=== PATIENT | male | born 1980 | race Caucasian/White ===

== ENCOUNTER 2017-12-05 16:49 | Emergency (ER) | payer MEDICARE ==
[~2017-12-05] VITALS: Ht 188 cm; Wt 113.4 kg
[~2017-12-05 16:49] MED LIST: DEPAKOTE 250MG250 M1; DEPAKOTE ER500 MG; KEFLEX500 MG PO; LAMICTAL100 MG; LEVOTHYROXIN0.075 MG; OLANZAPINE20 MG
[2017-12-05] MEDS ORDERED: OLANZAPINE5 M1 PO (17:15)
[2017-12-05] MEDS ORDERED: LAMICTAL (GREE1 EACH PO (17:16)
[2017-12-05] MEDS ORDERED: KEPPRA 500 MG500 M2 PO (17:16)
[2017-12-05] MEDS ORDERED: LEVOXYL75 MCG PO (17:16)
[2017-12-05] MEDS ORDERED: KEFLEX500 M1 PO (17:20)
[2017-12-05 17:29] VITALS: BP 148/93
== END 2017-12-05 17:31 | disposition home or self-care (01) ==
LOC: M.ERS 16:49
DX: S01.01XA Laceration without foreign body of scalp, initial encounter (principal); F17.210 Nicotine dependence, cigarettes, uncomplicated; W22.8XXA Striking against or struck by other objects, initial encounter; Y93.89 Activity, other specified; Y92.89 Other specified places as the place of occurrence of the external cause; Y99.8 Other external cause status

== ENCOUNTER 2018-03-31 10:56 | Emergency (ER) | payer MEDICARE, MEDICAID ==
[~2018-03-31] VITALS: Ht 188 cm; Wt 117.9 kg
[~2018-03-31 10:56] MED LIST changes: +KEFLEX500 M1 PO; +KEPPRA 500 MG500 M2 PO; +LAMICTAL (GREE1 EACH PO; +LEVOXYL75 MCG PO; +OLANZAPINE5 M1 PO
[2018-03-31] MEDS ORDERED: MEDROLDOSEPACK PO (12:36)
[2018-03-31] MEDS ORDERED: ROBAXIN 750 MG750 M1 PO (12:36)
[2018-03-31] MEDS ORDERED: IBUPROFEN 800800 M1 PO (12:36)
[2018-03-31 12:48] VITALS: BP 138/88
== END 2018-03-31 12:49 | disposition home or self-care (01) ==
LOC: M.ERS 10:56
DX: M54.16 Radiculopathy, lumbar region (principal); M46.1 Sacroiliitis, not elsewhere classified; M51.9 Unspecified thoracic, thoracolumbar and lumbosacral intervertebral disc disorder; G40.909 Epilepsy, unspecified, not intractable, without status epilepticus; F17.210 Nicotine dependence, cigarettes, uncomplicated

== ENCOUNTER 2019-11-19 21:34 | Emergency (ER) | payer MEDICARE, MEDICAID ==
[~2019-11-19] VITALS: Ht 188 cm; Wt 117.9 kg
[~2019-11-19 21:34] MED LIST changes: +IBUPROFEN 800800 M1 PO; +MEDROLDOSEPACK PO; +ROBAXIN 750 MG750 M1 PO
[2019-11-19 22:17] LABS: ABSOLUTE BASOPHILS 0.1 thou/uL (0.0-0.2); ABSOLUTE EOSINOPHILS 0.2 thou/uL (0.0-0.7); ABSOLUTE LYMPHOCYTES 3.1 thou/uL (0.8-5.3); ABSOLUTE MONOCYTES 0.7 thou/uL (0.0-1.2); ABSOLUTE NEUTROPHILS 6.3 thou/uL (1.6-8.1); BASOPHILS 1.2 %; EOSINOPHILS 1.5 %; HEMATOCRIT 45.6 % (42.0-52.0); HEMOGLOBIN 15.9 gm/dL (14.0-18.0); LYMPHOCYTES 29.8 %; MCH 32.6 pg (26.0-34.0); MCHC 34.9 g/dL (28.0-37.0); MCV 93.4 fL (80.0-100.0); MONOCYTES 6.4 %; MPV 8.9 fl. (7.2-11.1); NUCLEATED RBCS 0 /100WBC; PLATELET COUNT* 180 thou/uL (150-400); POLYS 61.1 %; RBC 4.88 mil/uL (4.50-6.00); RDW-CV 13.6 % (10.5-14.5); WBC 10.3 thou/uL (4.0-11.0)
[2019-11-19 22:23] LABS: CALCIUM 8.3 mg/dL (8.5-10.1); CREATININE 1.1 mg/dL (0.6-1.3); POTASSIUM 3.7 mmol/L (3.5-5.1)
[2019-11-19] MEDS ORDERED: PRAVACHOL 20 MG20 M1 PO (22:25)
[2019-11-19] MEDS ORDERED: MIRAPEX0.5 MG PO (22:27)
[2019-11-19 22:28] LABS: ALBUMIN 3.4 g/dL (3.4-5.0); TOTAL BILIRUBIN 0.2 mg/dL (<0.1-1.0); TOTAL PROTEIN 7.6 g/dL (6.4-8.2)
[2019-11-19 22:43] LABS: ALCOHOL < 10 mg/dL (<10); VALPROIC ACID (DEPAKENE) 40.5 mcg/mL (50-100)
[2019-11-19 22:44] LABS: URINE BILIRUBIN NEGATIVE (Negative); URINE BLOOD TRACE (Negative); URINE CLARITY CLEAR; URINE COLOR YELLOW; URINE GLUCOSE-RANDOM NEGATIVE (Negative); URINE KETONES NEGATIVE (Negative); URINE LEUKOCYTES-REFLEX NEGATIVE (Negative); URINE NITRITE-REFLEX NEGATIVE (Negative); URINE PROTEIN 1+ (Negative); URINE SPECIFIC GRAVITY >= 1.030 (1.005-1.030); URINE UROBILINOGEN 0.2 E.U./dl (0.2-1.0)
[2019-11-19 22:53] LABS: AMP/METHAMP Negative (Negative); BARBITURATES Negative (Negative); BENZODIAZEPINES Negative (Negative); COCAINE Negative (Negative); METHADONE Negative (Negative); OPIATES Negative (Negative); PCP Negative (Negative); THC POSITIVE (Negative)
[2019-11-19 23:20] VITALS: BP 120/64
--- NOTE | 2019-11-20 12:50 | EKG ---
[place] [address] ELECTROCARDIOGRAM REPORT Name: RON CODY Room: [facility]#: [id number] Admission: 11/19/19 Attend Phys: Discharge: 11/19/19 Date of : 76 Date of Service: 11/19/192136 Report #: [id number] THIS REPORT FOR: //name// [facility] ED Test Date: 2019-11-19 Test Time: 21:37:57 Pat Name: RON CODY Department: Room: Gender: Ic Design Manager: [place] : 1980 Requested By: Gale Rosa Order Number: [id number] Valentin MD: Grady Waddell Measurements Intervals [place] Rate: 90 P: 1 AR: 157 QRS: -2 QRSD: 85 T: 48 QT: 347 QTc: 425 Interpretive Statements Sinus rhythm Minimal ST depression, lateral leads Compared to ECG 05/21/2008 14:30:45 ST (T wave) deviation now present Electronically Signed On 11-20-2019 12:48:59 CDT by Grady Waddell [email or web address] <ELECTRONICALLY SIGNED> By: Grady Waddell MD, [facility] 11/20/19 1248 [id number] Grady Waddell MD, [facility] /EPI
== END 2019-11-19 23:22 | disposition home or self-care (01) ==
LOC: M.ERS 21:34
PROVIDERS: Personal Emergency Response Attendant
DX: R56.9 Unspecified convulsions (principal); Z79.899 Other long term (current) drug therapy

== ENCOUNTER 2020-05-12 19:10 | Emergency (ER) | payer MEDICARE, MEDICAID ==
[~2020-05-12] VITALS: Ht 188 cm; Wt 88.5 kg
[~2020-05-12 19:10] MED LIST changes: +DEPAKOTE ER250 MG PO; -DEPAKOTE ER500 MG; +MIRAPEX0.5 MG PO; +PRAVACHOL 20 MG20 M1 PO
[2020-05-12 19:46] LABS: ABSOLUTE BASOPHILS 0.1 thou/uL (0.0-0.2); ABSOLUTE EOSINOPHILS 0.2 thou/uL (0.0-0.7); ABSOLUTE LYMPHOCYTES 3.6 thou/uL (0.8-5.3); ABSOLUTE MONOCYTES 0.8 thou/uL (0.0-1.2); ABSOLUTE NEUTROPHILS 4.6 thou/uL (1.6-8.1); BASOPHILS 1.1 %; EOSINOPHILS 1.9 %; HEMATOCRIT 47.4 % (42.0-52.0); HEMOGLOBIN 16.7 gm/dL (14.0-18.0); LYMPHOCYTES 39.4 %; MCH 31.9 pg (26.0-34.0); MCHC 35.2 g/dL (28.0-37.0); MCV 90.7 fL (80.0-100.0); MONOCYTES 8.2 %; MPV 9.5 fl. (7.2-11.1); NUCLEATED RBCS 0 /100WBC; PLATELET COUNT* 169 thou/uL (150-400); POLYS 49.4 %; RBC 5.22 mil/uL (4.50-6.00); RDW-CV 13.1 % (10.5-14.5); WBC 9.3 thou/uL (4.0-11.0)
[2020-05-12 19:53] LABS: CALCIUM 8.9 mg/dL (8.5-10.1); CREATININE 1.3 mg/dL (0.6-1.3); POTASSIUM 3.5 mmol/L (3.5-5.1)
[2020-05-12 19:58] LABS: ALBUMIN 3.5 g/dL (3.4-5.0); TOTAL BILIRUBIN 0.3 mg/dL (<0.1-1.0); TOTAL PROTEIN 7.9 g/dL (6.4-8.2)
[2020-05-12 20:33] LABS: URINE BILIRUBIN NEGATIVE (Negative); URINE BLOOD 1+ (Negative); URINE CLARITY CLEAR; URINE COLOR YELLOW; URINE GLUCOSE-RANDOM NEGATIVE (Negative); URINE KETONES NEGATIVE (Negative); URINE LEUKOCYTES-REFLEX NEGATIVE (Negative); URINE NITRITE-REFLEX NEGATIVE (Negative); URINE PROTEIN 2+ (Negative); URINE SPECIFIC GRAVITY >= 1.030 (1.005-1.030); URINE UROBILINOGEN 0.2 E.U./dl (0.2-1.0)
[2020-05-12 20:39] LABS: HYALINE CASTS 4-10 Moderate /LPF (None Seen); MUCUS None Seen strn/LPF (None Seen); SQUAMOUS 0-3 Few /LPF (0-3)
[2020-05-12 20:40] LABS: BACTERIA-REFLEX 1-9 Few /HPF (None Seen); CRYSTALS None Seen /LPF (None Seen); URINE RBC 0-2 Rare /HPF (0-2); URINE WBC-REFLEX 0-5 Rare /HPF (0-5)
[2020-05-12 21:06] VITALS: BP 125/71
--- NOTE | 2020-05-13 11:44 | EKG ---
[place] [address] ELECTROCARDIOGRAM REPORT Name: RON CODY Room: [facility] ([place], [place])#: [id number] Admission: 05/12/20 Attend Phys: Discharge: 05/12/20 Date of : [birth year] Date of Service: 05/12/201915 Report #: [id number] THIS REPORT FOR: //name// [facility] ED Test Date: 2020-05-12 Test Time: 19:16:14 Pat Name: RON CODY Department: Room: Gender: Street Department Dispatcher: : 1980 Requested By: Gale Rosa Order Number: [id number] Valentin MD: Pranay Mcwilliams Measurements Intervals [place] Rate: 95 P: 47 IN: 166 QRS: 3 QRSD: 87 T: 51 QT: 329 QTc: 414 Interpretive Statements Sinus rhythm Borderline ST depression, lateral leads Compared to ECG 11/19/2019 21:37:57 No significant changes Electronically Signed On 05-13-2020 11:44:46 CDT by Pranay Mcwilliams [email or web address] <ELECTRONICALLY SIGNED> By: Pranay Mcwilliams MD, [facility] 05/13/20 1144 15 15 Pranay Mcwilliams MD, FAC /EPI
== END 2020-05-12 21:07 | disposition home or self-care (01) ==
LOC: M.ERS 19:10
PROVIDERS: Personal Emergency Response Attendant
DX: G40.909 Epilepsy, unspecified, not intractable, without status epilepticus (principal); F17.210 Nicotine dependence, cigarettes, uncomplicated; Z20.828 Contact with and (suspected) exposure to other viral communicable diseases

== ENCOUNTER 2020-10-13 23:41 | Emergency (ER) | payer MEDICARE, MEDICAID ==
[~2020-10-13] VITALS: Ht 188 cm; Wt 117.9 kg
[2020-10-14] MEDS ORDERED: DEPAKOTE 250MG250 MG PO (00:02)
[2020-10-14] MEDS ORDERED: DEPAKOTE ER500 M1 PO (00:03)
[2020-10-14] MEDS ORDERED: HYDROCODON-ACE1 EAC8 PO (00:28)
[2020-10-14] MEDS ORDERED: CIPROFLOXIN HC2.5 M1 OPHTHALMIC (00:28)
[2020-10-14 00:51] VITALS: BP 125/77
== END 2020-10-14 00:51 | disposition short-term general hospital (02) ==
LOC: M.ERS 23:41
DX: S05.02XA Injury of conjunctiva and corneal abrasion without foreign body, left eye, initial encounter (principal); E78.00 Pure hypercholesterolemia, unspecified; E03.9 Hypothyroidism, unspecified; F17.210 Nicotine dependence, cigarettes, uncomplicated; X58.XXXA Exposure to other specified factors, initial encounter; Y93.89 Activity, other specified; Y92.89 Other specified places as the place of occurrence of the external cause; Y99.8 Other external cause status